=== PATIENT | male | born 1990 | race Caucasian/White ===

== ENCOUNTER 2021-12-19 15:34 | Emergency (ER) | payer OTHER ==
[2021-12-19 15:50] VITALS: BP 132/78; PULSE 93; RESP 19; TEMP 97.9; BMI 33.9
[2021-12-19] MEDS ORDERED: KETOROLAC TROMETHAMINE 30 MG/1 ML VIAL IM ONE (17:16)
[2021-12-19] MEDS ORDERED: ACETAMINOPHEN 500 MG TABLET (FP) PO ONE (17:16)
[2021-12-19] MEDS ORDERED: diazePAM 5 MG TABLET PO ONE (17:16)
[2021-12-19] MEDS ORDERED: LIDOCAINE 5% TOPICAL PATCH TP ONE (17:16)
[2021-12-19] MEDS ORDERED: LIDOCAINE 5% TOPICAL PATCH ONE (17:37)
[2021-12-19] MEDS ORDERED: KETOROLAC TROMETHAMINE 30 MG/1 ML VIAL ONE (17:38)
[2021-12-19] MEDS ORDERED: ACETAMINOPHEN 500 MG TABLET (FP) ONE (17:38)
[2021-12-19] MEDS ORDERED: diazePAM 5 MG TABLET ONE (17:38)
[2021-12-19] MEDS ORDERED: LIDOCAINE PATCH REMOVAL MC ONE (22:00)
== END 2021-12-19 19:33 | disposition home or self-care (01) ==
LOC: JERFT 15:34
PROC: 3E023GC Introduction of Other Therapeutic Substance into Muscle, Percutaneous Approach (ICD-10-PCS; principal; 2021-12-19)
DX: M54.2 Cervicalgia (principal); M54.50 Low back pain, unspecified; V49.40XA Driver injured in collision with unspecified motor vehicles in traffic accident, initial encounter
CPT/HCPCS: 72100-TC-FY; 72125-TC; 99284-25